=== PATIENT | female | born 1990 | race Two or more races ===

== ENCOUNTER 2018-12-23 14:11 | Emergency (ER) | payer SELFPAY ==
[2018-12-23] MEDS ORDERED: ACETAMINOPHEN 325 MG TABLET PO PRN (16:35)
--- NOTE | 2018-12-23 16:41 | ER Document Report ---
ED Medical Screen (RME) - General Chief Complaint: Abscess Stated Complaint: ABSCESS Time Seen by Provider: 12/23/18 16:35 Notes: Pt. is a 28 year old female presents to the ED with a potential abscess near her right labia. Patient states she had noticed at 4-5 days ago. States it is painful in nature. Patient states she did apply a warm rag but has noticed no discharge from the area. Past medical history: None Medications: None Allergies: None Patient's genitalia were not assessed while patient was in the pit triage. Waiting for a room to fully assess the patient. LUNGS: Clear to auscultation bilaterally, no wheezes, rales, or rhonchi. No respiratory distress. I have greeted and performed a rapid initial assessment of this patient. A comprehensive ED assessment and evaluation of the patient, analysis of test results and completion of the medical decision making process will be conducted by additional ED providers. TRAVEL OUTSIDE OF THE [place] IN LAST 30 DAYS: No - Related Data Allergies/Adverse Reactions: No Known Allergies Allergy (Verified 12/21/14 14:12) Past Medical History Neurological Medical History: Reports: Hx Migraine Renal/ Medical History: Reports: Hx Kidney Stones Psychiatric Medical History: Reports: Hx Anxiety - Immunizations Immunizations up to date: Yes Hx Diphtheria, Pertussis, Tetanus Vaccination: Yes Physical Exam - Vital signs Vitals: Temp Pulse Resp BP Pulse Ox 98.3 F 89 18 112/62 100 12/23/18 14:28 12/23/18 14:28 12/23/18 14:28 12/23/18 14:28 12/23/18 14:28 Course - Vital Signs Vital signs: Temp Pulse Resp BP Pulse Ox 98.3 F 89 18 112/62 100 12/23/18 14:28 12/23/18 14:28 12/23/18 14:28 12/23/18 14:28 12/23/18 14:28
[2018-12-23] MEDS ORDERED: LIDOCAINE 1%/EPINEPHRINE INJ 20 ML VIAL INJ ONE (18:59)
--- NOTE | 2018-12-23 19:00 | ER Document Report ---
ED General - General Chief Complaint: Abscess Stated Complaint: ABSCESS Time Seen by Provider: 12/23/18 16:35 Primary Care Provider: [facility] [Outside] - Follow up as needed Mode of Arrival: Ambulatory Information source: Patient TRAVEL OUTSIDE OF THE [place] IN LAST 30 DAYS: No - HPI Patient complains to provider of: Abscess Onset: Other - 28-year-old female presents for complaint of pain and swelling in her right labia which developed over the last 2 days. Nothing is made it better or worse, she is never taken or had anything like this in the past. Denies any change in sexual partners or other symptoms at this time. - Related Data Allergies/Adverse Reactions: No Known Allergies Allergy (Verified 12/23/18 16:38) Past Medical History - General Information source: Patient - Social History Smoking Status: Current Every Day Smoker Chew tobacco use (# tins/day): No Smoking Education Provided: Yes Frequency of alcohol use: None Drug Abuse: None Family History: CVA, DM, Hypertension Patient has suicidal ideation: No Patient has homicidal ideation: No Neurological Medical History: Reports: Hx Migraine Renal/ Medical History: Reports: Hx Kidney Stones. Denies: Hx Peritoneal Dialysis Psychiatric Medical History: Reports: Hx Anxiety - Immunizations Immunizations up to date: Yes Hx Diphtheria, Pertussis, Tetanus Vaccination: Yes Review of Systems - Review of Systems -: Yes All other systems reviewed and negative Physical Exam - Vital signs Vitals: Temp Pulse Resp BP Pulse Ox 98.3 F 89 18 112/62 100 12/23/18 14:28 12/23/18 14:28 12/23/18 14:28 12/23/18 14:28 12/23/18 14:28 - General General appearance: Appears well, Alert - HEENT Head: Normocephalic, Atraumatic Eyes: Normal Pupils: PERRL - Respiratory Respiratory status: No respiratory distress - Abdominal Inspection: Normal Distension: No distension - Genitourinary External exam: Other - Tax Advisor is present, the right labia demonstrates swelling and tenderness in a terse 2 x 3 cm area - Back Back: Normal - Extremities General upper extremity: Normal inspection, Nontender, Normal color, Normal ROM, Normal temperature General lower extremity: Normal inspection, Nontender, Normal color, Normal ROM, Normal temperature, Normal weight bearing. No: Alec's sign - Neurological Neuro grossly intact: Yes Cognition: Normal Orientation: AAOx4 Sanchez Coma Scale Eye Opening: Spontaneous [place] Coma Scale Verbal: Oriented Sanchez Coma Scale Motor: Obeys Commands Sanchez Coma Scale Total: 15 Speech: Normal Motor strength normal: LUE, RUE, LLE, RLE Sensory: Normal Course - Re-evaluation Re-evalutation: 28-year-old female presents for evaluation of vaginal swelling. Her right labia demonstrates what appears to be an abscess in the lateral aspect, there is non-the introitus and not profoundly swollen do not believe that this represents a Bartholin gland cyst believe this likely represents an actual abscess in the skin there to. Performed incision and drainage at the bedside utilizing lidocaine and a scalpel. Copious purulent material was expressed. Will prophylactically cover for chlamydia for this patient as sexually transmitted infections could potentially be an underlying cause of her abscess. She was discharged with return precautions and expectant management encouragement to abstain from sexual intercourse over the next several days until this heals. - Vital Signs Vital signs: Temp Pulse Resp BP Pulse Ox 97.9 F 69 19 104/68 97 12/23/18 20:46 12/23/18 20:46 12/23/18 20:46 12/23/18 20:46 12/23/18 20:46 Procedures - Incision and Drainage Right Medial Labia Type: Simple, Single Anesthetic type: 1% Lidocaine mL's of anesthetic: 5 Blade size: 11 I&D procedure: Betadine prep applied Incision Method: Incision made by scalpel Amount/type of drainage: 7 Female anatomy: 1 - abscess Discharge - Discharge Clinical Impression: Abscess, Labial swelling Condition: Good Disposition: HOME, SELF-CARE Instructions: Abscess ([facility]) Additional Instructions: You were seen today in the emergency department for your swollen labia. You had evaluation including a physical exam, you had an incision and drainage done. You should use the antibiotic prescribed to you for the next 10 days. Return in case of worsening fevers or chills. Apply heat to this area twice daily for 15 minutes. Pull out the packing in 2 days. Follow-up with your primary doctor this week for a wound check. Prescriptions: Doxycycline Hyclate 100 mg PO BID #20 capsule Forms: Return to Work Referrals: [facility] [Outside] - Follow up as needed
[2018-12-23 20:50] VITALS: BP 104/68
== END 2018-12-23 20:50 | disposition home or self-care (01) ==
LOC: ER 14:11
DX: N76.4 Abscess of vulva (principal); F17.200 Nicotine dependence, unspecified, uncomplicated; Z87.442 Personal history of urinary calculi
CPT/HCPCS: 99283; 56405; A6266; J3490

== ENCOUNTER 2019-06-15 19:23 | Emergency (ER) | payer SELFPAY ==
[2019-06-15 19:28] VITALS: BP 120/71
--- NOTE | 2019-06-15 19:42 | ER Document Report ---
HPI - HPI Time Seen by Provider: 06/15/19 19:33 Pain Level: 4 Notes: Patient is a 29-year-old female who presents complaining of a rash to her right plantar foot that is been present for a couple months without known offending agent. Patient states that she does have dermatitis/eczema and is not sure if this is related. Cortisone cream with minimal relief. Patient states that the areas are starting to get a little thicker and harder and painful when she walks. She has not noticed any redness or purulent discharge. Denies any drug allergies. She has not been seen for this issue before. Denies any headache, fever, URI, sore throat, chest pain, palpitations, syncope, cough, shortness of breath, wheeze, dyspnea, abdominal pain, nausea/vomiting/diarrhea, urinary retention, dysuria, hematuria. - ROS Systems Reviewed and Negative: Yes All other systems reviewed and negative - REPRODUCTIVE Reproductive: DENIES: : Past Medical History - Social History Smoking Status: Never Smoker Family History: CVA, DM, Hypertension Neurological Medical History: Reports: Hx Migraine Renal/ Medical History: Reports: Hx Kidney Stones. Denies: Hx Peritoneal Dialysis Psychiatric Medical History: Reports: Hx Anxiety - Immunizations Immunizations up to date: Yes Hx Diphtheria, Pertussis, Tetanus Vaccination: Yes Vertical Provider Document - CONSTITUTIONAL Agree With Documented VS: Yes Notes: PHYSICAL EXAMINATION: GENERAL: Well-appearing, well-nourished and in no acute distress. LUNGS: Breath sounds clear to auscultation bilaterally and equal. No wheezes rales or rhonchi. HEART: Regular rate and rhythm without murmurs, rubs, gallops. Musculoskeletal: Rt foot/ankle: No ecchymosis or deformity. FROM to passive/active. Strength 5+/5. N/V intact distal. No bony tenderness of the foot. Achilles intact. Lis Franc maneuver neg. Anterior drawer neg. + lichenified hyperpigmented skin rash/lesions on the plantar foot w/o tenderness, erythema, abscess, or streaks. Extremities: No cyanosis, clubbing, or edema b/l. Peripheral pulses 2+. Capillary refill less than 3 seconds. NEUROLOGICAL: Normal speech, normal gait. Normal sensory, motor exams PSYCH: Normal mood, normal affect. SKIN: see above. - INFECTION CONTROL TRAVEL OUTSIDE OF THE [place] IN LAST 30 DAYS: No Course - Re-evaluation Re-evalutation: 06/15/19 19:51 Patient is an afebrile, well-hydrated, 29-year-old female who presents with skin rash to the plantar right foot, unspecified, but appears benign. Vitals are acceptable without significant tachycardia, tachypnea, or hypoxia. PE is otherwise unremarkable vascular compromise, obvious tendon/leg rupture, obvious fracture/dislocation, septic joint. There is no evidence of bacterial infection. Patient is nontoxic-appearing and is able to tolerate p.o. without difficulty. It has been an ongoing issue for the past couple months. Cortisone [id number] has not been ongoing for her. We will try her on a fungal cream with expected follow-up to podiatry. Low suspicion for any necrotizing fasciitis, SJS, SSS, drug reaction, sepsis, meningitis, syphilis, Lyme disease, [place] spotted fever, or other systemic emergent condition at this time. Patient aware that condition can change from initial presentation and he needs to monitor symptoms closely and seek medical attention with any acute changes. Recheck with your PCM as needed otherwise. Return to the ED with any other worsening/concerning symptoms as reviewed. Patient is in agreement. - Vital Signs Vital signs: Temp Pulse Resp BP Pulse Ox 98.4 F 90 14 120/71 98 06/15/19 19:27 06/15/19 19:27 06/15/19 19:27 06/15/19 19:27 06/15/19 19:27 Discharge - Discharge Clinical Impression: Rash and nonspecific skin eruption Condition: Stable Disposition: HOME, SELF-CARE Additional Instructions: Keep the skin clean Wash with soap and water Tylenol/ibuprofen if needed Triple antibiotic ointment daily for any break in the skin Epsom salt soaks Avoid submersion in ocean or pool water for now Take medication as directed Monitor for any worsening symptoms Recheck with your PCM in 3-5 days Schedule consult podiatry Return to the ED with any worsening symptoms and/or development of fever, headache, chest pain, palpitations, syncope, shortness of breath, trouble breathing, abdominal pain, n/v/d, abscess, purulent discharge, red streaks, worsening swelling, or other worsening symptoms that are concerning to you. Prescriptions: Clotrimazole [Athletic Foot Cream] 1 applic TP BID #30 gm Referrals: MESSI MANCINI DPM [ACTIVE STAFF] - Follow up in 3-5 days
== END 2019-06-15 20:00 | disposition home or self-care (01) ==
LOC: ER 19:23
DX: R21 Rash and other nonspecific skin eruption (principal)
CPT/HCPCS: 99282

== ENCOUNTER 2019-11-29 18:49 | Emergency (ER) | payer SELFPAY ==
--- NOTE | 2019-11-29 20:05 | ER Document Report ---
ED Medical Screen (RME) - General Chief Complaint: Vaginal Bleeding Stated Complaint: VAGINAL BLEEDING Time Seen by Provider: 11/29/19 20:01 TRAVEL OUTSIDE OF THE [place] IN LAST 30 DAYS: No - HPI Notes: 11/29/19 20:04 Patient is a 29-year-old female with no significant past medical history who presents complaining of having light spotting since yesterday primarily when she wipes. She is able to eat and drink without difficulty. She is urinating normally and having normal bowel movements. No other vaginal odor or discharge. Patient states that she is because she had a menstrual cycle on 18 November and this is abnormal for her. She has no other pain or discomfort. No fever. I have treated and performed a rapid initial assessment of this patient. A comprehensive ED assessment and evaluation of the patient, analysis of test results and completion of medical decision making process will be conducted by additional ED providers. PHYSICAL EXAMINATION: GENERAL: Well-appearing, well-nourished and in no acute distress. A&Ox4. Answers questions appropriately. Abdomen: Limited exam in triage, grossly nontender. - Related Data Allergies/Adverse Reactions: No Known Allergies Allergy (Verified 12/23/18 16:38) Past Medical History Neurological Medical History: Reports: Hx Migraine Renal/ Medical History: Reports: Hx Kidney Stones. Denies: Hx Peritoneal Dialysis Psychiatric Medical History: Reports: Hx Anxiety - Immunizations Immunizations up to date: Yes Hx Diphtheria, Pertussis, Tetanus Vaccination: Yes Physical Exam - Vital signs Vitals: Temp Pulse Resp BP Pulse Ox 98.7 F 97 14 118/71 99 11/29/19 19:12 11/29/19 19:12 11/29/19 19:12 11/29/19 19:12 11/29/19 19:12 Course - Vital Signs Vital signs: Temp Pulse Resp BP Pulse Ox 98.7 F 97 14 118/71 99 11/29/19 19:12 11/29/19 19:12 11/29/19 19:12 11/29/19 19:12 11/29/19 19:12
[2019-11-29 21:10] LABS: ABSOLUTE BASOPHILS # (AUTO) 0.1 10^3/uL (0.0-0.2); ABSOLUTE EOSINOPHILS # (AUTO) 0.1 10^3/uL (0.0-0.6); ABSOLUTE LYMPHOCYTES (AUTO) 3.2 10^3/uL (0.5-4.7); ABSOLUTE MONOCYTES (AUTO) 0.9 10^3/uL (0.1-1.4); ABSOLUTE NEUT (AUTO) 5.5 10^3/uL (1.7-8.2); BASOPHILS % (AUTO) 0.7 % (0-2); EOSINOPHILS % (AUTO) 1.2 % (0-6); HEMATOCRIT 34.9 % (36.0-47.0); HEMOGLOBIN 11.7 g/dL (12.0-15.5); MEAN CORPUSCULAR HEMOGLOBIN 28.5 pg (27.0-33.4); MEAN CORPUSCULAR HGB CONC 33.4 g/dL (32.0-36.0); MEAN CORPUSCULAR VOLUME 85 fl (80-97); MONOCYTES % (AUTO) 9.2 % (3-13); PLATELET COUNT 259 10^3/uL (150-450); RED BLOOD COUNT 4.09 10^6/uL (3.72-5.28); RED CELL DISTRIBUTION WIDTH 15.6 % (11.5-14.0); SEGMENTED NEUTROPHILS % (AUTO) 55.9 % (42-78); TOTAL CELLS COUNTED % (AUTO) 100 %; WHITE BLOOD COUNT 9.8 10^3/uL (4.0-10.5)
[2019-11-29 21:21] LABS: APPEARANCE,URINE SLIGHTLY-CLOUDY; BILIRUBIN,URINE NEGATIVE (NEGATIVE); COLOR,URINE YELLOW; GLUCOSE, URINE NEGATIVE (NEGATIVE); KETONES,URINE NEGATIVE (NEGATIVE); PROTEIN,URINE 30 mg/dL (NEGATIVE); URINE SPECIFIC GRAVITY 1.023
[2019-11-29 21:33] LABS: ALBUMIN 4.1 g/dL (3.5-5.0); ALKALINE PHOSPHATASE 73 U/L (38-126); ANION GAP 9 (5-19); ASPARTATE AMINO TRANSFERASE 34 U/L (14-36); BILIRUBIN,DIRECT 0.1 mg/dL (0.0-0.4); BILIRUBIN,TOTAL 0.3 mg/dL (0.2-1.3); BLOOD UREA NITROGEN 14 mg/dL (7-20); CALCIUM 9.3 mg/dL (8.4-10.2); CARBON DIOXIDE 24 mmol/L (22-30); CHLORIDE 106 mmol/L (98-107); GLUCOSE 77 mg/dL (75-110); TOTAL PROTEIN 7.3 g/dL (6.3-8.2)
--- NOTE | 2019-11-29 22:34 | ER Document Report ---
ED General - General Chief Complaint: Vaginal Bleeding Stated Complaint: VAGINAL BLEEDING Time Seen by Provider: 11/29/19 20:01 Mode of Arrival: Ambulatory Information source: Patient TRAVEL OUTSIDE OF THE [place] IN LAST 30 DAYS: No - HPI Notes: Patient presents complaining of vaginal bleeding. She states that she had a normal menstrual period 2 weeks ago now she is having some light spotting for the last 3 days. She states there is no pain associated with it. She states that she has not had this previously. She does not take any type of hormones. She states that the bleeding has not been related to intercourse. She states she is not concerned about any type of infection. No problems with urination. No nausea vomiting or diarrhea. The bleeding has been intermittent and light. No clots. She is no knowledge that she is . There is no significant radiation symptoms. Symptoms are intermittent. Nothing makes it better or worse. - Related Data Allergies/Adverse Reactions: No Known Allergies Allergy (Verified 12/23/18 16:38) Past Medical History - General Information source: Patient - Social History Smoking Status: Current Every Day Smoker Chew tobacco use (# tins/day): No Frequency of alcohol use: None Drug Abuse: None Family History: CVA, DM, Hypertension Patient has suicidal ideation: No Patient has homicidal ideation: No Neurological Medical History: Reports: Hx Migraine Renal/ Medical History: Reports: Hx Kidney Stones. Denies: Hx Peritoneal Dialysis Psychiatric Medical History: Reports: Hx Anxiety - Immunizations Immunizations up to date: Yes Hx Diphtheria, Pertussis, Tetanus Vaccination: Yes Review of Systems - Review of Systems Constitutional: denies: Chills, Fever Cardiovascular: denies: Chest pain, Palpitations Respiratory: denies: Cough, Short of breath, Sputum Gastrointestinal: denies: Diarrhea, Constipation -: Yes All other systems reviewed and negative Physical Exam - Vital signs Vitals: Temp Pulse Resp BP Pulse Ox 98.7 F 97 14 118/71 99 11/29/19 19:12 11/29/19 19:12 11/29/19 19:12 11/29/19 19:12 11/29/19 19:12 Interpretation: Normal - General General appearance: Appears well, Alert - HEENT Head: Normocephalic, Atraumatic Eyes: Normal Pupils: PERRL - Respiratory Respiratory status: No respiratory distress Chest status: Nontender Breath sounds: Normal Chest palpation: Normal - Cardiovascular Rhythm: Regular Heart sounds: Normal auscultation Murmur: No - Abdominal Inspection: Normal Distension: No distension Bowel sounds: Normal Tenderness: Nontender Organomegaly: No organomegaly - Back Back: Normal, Nontender - Extremities General upper extremity: Normal inspection, Nontender, Normal color, Normal ROM, Normal temperature General lower extremity: Normal inspection, Nontender, Normal color, Normal ROM, Normal temperature, Normal weight bearing. No: Alec's sign - Neurological Neuro grossly intact: Yes Cognition: Normal Orientation: AAOx4 [place] Coma Scale Eye Opening: Spontaneous [place] Coma Scale Verbal: Oriented [place] Coma Scale Motor: Obeys Commands [place] Coma Scale Total: 15 Speech: Normal Motor strength normal: LUE, RUE, LLE, RLE Sensory: Normal - Psychological Associated symptoms: Normal affect, Normal mood - Skin Skin Temperature: Warm Skin Moisture: Dry Skin Color: Normal Course - Vital Signs Vital signs: Temp Pulse Resp BP Pulse Ox 98.7 F 97 14 118/71 99 11/29/19 19:12 11/29/19 19:12 11/29/19 19:12 11/29/19 19:12 11/29/19 19:12 - Laboratory Result Diagrams: 11/29/19 21:00 11/29/19 21:00 Laboratory results interpreted by me: 11/29/19 11/29/19 20:58 21:00 Hgb 11.7 L Hct 34.9 L RDW 15.6 H Urine Protein 30 H Urine Blood LARGE H Urine Urobilinogen 2.0 H Discharge - Discharge Clinical Impression: Dysfunctional uterine bleeding Condition: Stable Disposition: HOME, SELF-CARE Instructions: Vaginal Bleeding ([facility]) Forms: Return to Work
[2019-11-29 22:59] VITALS: BP 127/76
== END 2019-11-29 22:58 | disposition home or self-care (01) ==
LOC: ER 18:49
DX: N93.8 Other specified abnormal uterine and vaginal bleeding (principal); F17.200 Nicotine dependence, unspecified, uncomplicated
CPT/HCPCS: 36415; 80053; 81001; 81025; 85025; 99284

== ENCOUNTER 2020-01-24 11:43 | Emergency (ER) | payer SELFPAY ==
--- NOTE | 2020-01-24 12:14 | ER Document Report ---
HPI - HPI Time Seen by Provider: 01/24/20 12:09 Notes: CHIEF COMPLAINT: Right ankle injury HPI: 29-year-old female presenting to the emergency department complaining of right lateral ankle injury yesterday. Patient rolled the ankle while "playing around". States she was initially able to weight-bear. No proximal lower leg pain. Denies numbness tingling in the toes ROS: See HPI - all other systems were reviewed and are otherwise negative Constitutional: no fever Integumentary: no rash Allergy: no hives Musculoskeletal: + extremity pain or swelling Neurological: no numbness/tingling MEDICATIONS: I agree with the patient medications as charted by the RN. ALLERGIES: I agree with the allergies as charted by the RN. PAST MEDICAL HISTORY/PAST SURGICAL HISTORY: Reviewed and agree as charted by RN. SOCIAL HISTORY: Reviewed and agree as charted by RN. FAMILY HISTORY: No significant familial comorbid conditions directly related to patient complaint EXAM: Reviewed vital signs as charted by RN. CONSTITUTIONAL: Alert and oriented and responds appropriately to questions. Well-appearing; well-nourished, mild distress secondary to pain HEAD: Normocephalic; atraumatic EYES: Conjunctivae clear, sclerae non-icteric ENT: normal nose; no rhinorrhea; moist mucous membranes NECK: Supple without meningismus CARD: symmetric distal pulses RESP: Normal chest excursion without splinting or tachypnea ABD/GI: non-distended BACK: The back appears normal EXT: There is some limited flexion extension of the right foot at the ankle secondary to pain. No proximal fibular pain on palpation of the right lower extremity. There is no tenderness on palpation of the tarsals or metatarsals of the right foot. Dorsalis pedis and posterior tibial pulses are present in the right foot and ankle. There is no tenderness over the medial malleolus of the right ankle on palpation. There is moderate soft tissue swelling with tenderness over the lateral malleolus of the right ankle on palpation SKIN: Normal color for age and race; warm; dry; good turgor; no acute lesions noted NEURO: Moves all extremities equally; Motor and sensory function intact PSYCH: The patient's mood and manner are appropriate. Grooming and personal hygiene are appropriate. MDM: 29-year-old female with injury to the lateral right ankle will obtain x-ray for fracture - REPRODUCTIVE Reproductive: DENIES: : Past Medical History - Social History Smoking Status: Unknown if Ever Smoked Family History: CVA, DM, Hypertension Neurological Medical History: Reports: Hx Migraine Renal/ Medical History: Reports: Hx Kidney Stones. Denies: Hx Peritoneal Dialysis Psychiatric Medical History: Reports: Hx Anxiety - Immunizations Immunizations up to date: Yes Hx Diphtheria, Pertussis, Tetanus Vaccination: Yes Vertical Provider Document - INFECTION CONTROL TRAVEL OUTSIDE OF THE [place] IN LAST 30 DAYS: No Course - Re-evaluation Re-evalutation: 01/24/20 12:43 I do not visualize a malleolus fracture on review of the patient's x-ray imaging. Will treat symptomatically Aircast, crutches, pain management - Vital Signs Vital signs: Temp Pulse Resp BP Pulse Ox 98.1 F 96 16 111/85 99 01/24/20 11:50 01/24/20 11:50 01/24/20 11:50 01/24/20 11:50 01/24/20 11:50 Procedures - Immobilization Right Distal Ankle Time completed: 13:10 Pre-Proc Neuro Vasc Exam: Normal Immobilizer type: Ankle stirrup, Crutches Performed by: PCT Post-Proc Neuro Vasc Exam: Normal, Unchanged from pre-exam Alignment checked and good: Yes Discharge - Discharge Clinical Impression: Right ankle sprain Qualifiers: Encounter type: initial encounter Involved ligament of ankle: unspecified ligament Qualified Code(s): S93.401A - Sprain of unspecified ligament of right ankle, initial encounter Condition: Stable Disposition: HOME, SELF-CARE Additional Instructions: 1. ice and elevate the lower extremity as much as possible 2. utilize the crutches as instructed, weightbearing as tolerated 3. medications for pain as prescribed 4. follow up with orthopedics for further evaluation and treatment, call for appt. Prescriptions: Naproxen 500 mg PO BID PRN #14 tablet PRN Reason: Referrals: FELICIANO MARTIN MD [ACTIVE STAFF] - Follow up as needed
--- NOTE | 2020-01-24 12:51 | RADIOLOGY REPORT (SQ) ---
EXAM DESCRIPTION: ANKLE RIGHT COMPLETE COMPLETED DATE/TIME: 01/24/2020 12:38 pm REASON FOR STUDY: lateral ankle inj COMPARISON: None. NUMBER OF VIEWS: Three views. TECHNIQUE: AP, lateral, and oblique radiographic images acquired of the right ankle. LIMITATIONS: None. FINDINGS: MINERALIZATION: Normal. BONES: No acute fracture or dislocation. No worrisome bone lesions. JOINTS: No effusions. SOFT TISSUES: Lateral soft tissue swelling. No foreign body. OTHER: No other significant finding. IMPRESSION: SOFT TISSUE SWELLING. NO FRACTURE OR ACUTE BONY FINDINGS. TECHNICAL DOCUMENTATION: JOB ID: [id number] 2010 [employer] All Rights Reserved Reading location - IP/workstation name: [email or web address]
[2020-01-24] MEDS ORDERED: NAPROXEN 250 MG TABLET PO ONE (13:08)
[2020-01-24 13:36] VITALS: BP 122/80
== END 2020-01-24 13:35 | disposition home or self-care (01) ==
LOC: ER 11:43
DX: S93.401A Sprain of unspecified ligament of right ankle, initial encounter (principal); X50.9XXA Other and unspecified overexertion or strenuous movements or postures, initial encounter
CPT/HCPCS: 99283